=== PATIENT | female | born 1960 | race Caucasian/White ===

== ENCOUNTER → 2024-12-26 12:37 | Outpatient (REF) | payer OTHER, SELFPAY | LOC: HWWDC 12:37 | PROVIDERS: ATTENDING PHYSICIAN Family Medicine; FAMILY PHYSICIAN Family Medicine | DX: Z12.31 Encounter for screening mammogram for malignant neoplasm of breast (principal) | CPT/HCPCS: 77063; 77067 ==

== ENCOUNTER → 2025-07-14 12:19 | Outpatient (REF) | payer OTHER, SELFPAY | LOC: RAD 12:19 | PROVIDERS: ATTENDING PHYSICIAN Family Medicine | DX: M25.512 Pain in left shoulder (principal) | CPT/HCPCS: 73030 ==

== ENCOUNTER → 2025-07-16 12:15 | Outpatient (REF) | payer OTHER, SELFPAY | LOC: RAD 12:15 | PROVIDERS: ATTENDING PHYSICIAN Family Medicine | DX: M25.522 Pain in left elbow (principal); M25.532 Pain in left wrist | CPT/HCPCS: 73080; 73110 ==